=== PATIENT | female | born 1935 ===

== ENCOUNTER → 2021-04-09 08:00 | Outpatient (CLI) | payer OTHER | END | disposition home or self-care (01) | LOC: PPH VACUNA 08:00 | PROVIDERS: ATTEND Emergency Medicine Pediatric Emergency Medicine | DX: Z23 Encounter for immunization (principal) ==

== ENCOUNTER 2022-01-12 13:14 | Outpatient (CLI) | payer OTHER | END 2022-01-12 13:24 | disposition home or self-care (01) | LOC: PPH VACUNA 13:14 | PROVIDERS: ATTEND Emergency Medicine Pediatric Emergency Medicine | DX: Z23 Encounter for immunization (principal) ==